=== PATIENT | female | born 1985 | race Caucasian/White ===

== ENCOUNTER 2017-03-28 12:59 | Emergency (ER) | payer MEDICAID | END 2017-03-28 14:08 | disposition left against medical advice (07) | LOC: D.ER 12:59 | DX: Z02.9 Encounter for administrative examinations, unspecified (principal) ==

== ENCOUNTER 2017-05-08 16:41 | Emergency (ER) | payer MEDICAID | END 2017-05-08 18:40 | disposition home or self-care (01) | LOC: D.ER 16:41 | DX: R51 Headache (principal) ==

== ENCOUNTER 2017-10-15 11:43 | Emergency (ER) | payer MEDICAID | END 2017-10-15 13:30 | disposition home or self-care (01) | LOC: D.ER 11:43 | DX: R07.9 Chest pain, unspecified (principal); R51 Headache; F17.200 Nicotine dependence, unspecified, uncomplicated ==

== ENCOUNTER → 2017-10-15 13:56 | Outpatient (CLI) | payer MEDICAID | END | disposition home or self-care (01) | LOC: D.MAMMO 10:30 | DX: N60.02 Solitary cyst of left breast (principal) ==

== ENCOUNTER 2018-10-16 16:16 | Emergency (ER) | payer MEDICAID ==
[~2018-10-16] VITALS: Ht 172.7 cm; Wt 75.0 kg
[2018-10-16 16:21] VITALS: Ht 172.7 cm; Wt 75.0 kg
[2018-10-16] MEDS ORDERED: VOLTAREN75 MG PO (19:24)
[2018-10-16] MEDS ORDERED: ROBAXIN500 MG PO (19:24)
[2018-10-16 19:55] VITALS: BP 145/102
== END 2018-10-16 19:55 | disposition home or self-care (01) ==
LOC: D.ER 16:16
DX: M54.2 Cervicalgia (principal); M79.18 Myalgia, other site; V49.9XXA Car occupant (driver) (passenger) injured in unspecified traffic accident, initial encounter; Y93.89 Activity, other specified; Y92.410 Unspecified street and highway as the place of occurrence of the external cause; F17.200 Nicotine dependence, unspecified, uncomplicated

== ENCOUNTER 2019-11-24 21:26 | Emergency (ER) | payer MEDICAID ==
[~2019-11-24] VITALS: Ht 172.7 cm; Wt 75.0 kg
[~2019-11-24 21:26] MED LIST: ROBAXIN500 MG PO; VOLTAREN75 MG PO
[2019-11-24 21:36] VITALS: BP 124/89; Ht 172.7 cm; Wt 75.0 kg
[2019-11-24] MEDS ORDERED: TYLENOL W/CODEI1 TAB PO (21:52)
[2019-11-24] MEDS ORDERED: FLOXIN 0.3 % OTI5 ML EACH EAR (21:52)
[2019-11-24] MEDS ORDERED: AUGMENTIN 875-11 TAB PO (21:52)
== END 2019-11-24 22:31 | disposition home or self-care (01) ==
LOC: D.ER 21:26
DX: H72.91 Unspecified perforation of tympanic membrane, right ear (principal); X58.XXXA Exposure to other specified factors, initial encounter; Y93.9 Activity, unspecified; Y92.9 Unspecified place or not applicable

== ENCOUNTER 2021-04-25 15:31 | Emergency (ER) | payer BC ==
[~2021-04-25] VITALS: Ht 172.7 cm; Wt 84.1 kg
[~2021-04-25 15:31] MED LIST changes: +AUGMENTIN 875-11 TAB PO; +FLOXIN 0.3 % OTI5 ML EACH EAR; +TYLENOL W/CODEI1 TAB PO
[2021-04-25 15:34] VITALS: Ht 172.7 cm; Wt 84.1 kg
[2021-04-25] MEDS ORDERED: CLEOCIN HCL300 MG PO (16:01)
[2021-04-25] MEDS ORDERED: ARTHROTEC 501 TAB.EC PO (16:01)
== END 2021-04-25 16:13 | disposition home or self-care (01) ==
LOC: D.ER 15:31
DX: K02.9 Dental caries, unspecified (principal); K08.89 Other specified disorders of teeth and supporting structures